=== PATIENT | female | born 1950 | race Caucasian/White ===

== ENCOUNTER 2018-09-06 08:01 | Inpatient (IN) | payer OTHER ==
--- NOTE | 2018-09-06 08:08 | EDPHY ---
H & P Time Seen by Provider: 09/06/18 08:04 HPI/ROS: CHIEF COMPLAINT: Syncope, facial droop HISTORY OF PRESENT ILLNESS: The patient is a 68-year-old female who is a memory care unit. She was witnessed to have syncopal episode at 730am. She fell and struck the posterior aspect of her head. She was reportedly unconscious for 5 min. When EMS arrived the patient was unresponsive. She subsequently became more responsive in the noticed a right-sided facial droop. Patient's mental status has improved in route. Glucose was 152. Met the patient in the hallway. She answer simple questions. She was taken to CT imaging. REVIEW OF SYSTEMS: Unable bowl to obtain a full review of systems due the patient's memory care issues and recent fall. Past Medical/Surgical History: Includes dementia, diabetes Social history: The patient lives in a memory care unit at [facility]. Physical Exam: Vitals noted GENERAL: Alert. Answers simple questions HEENT: Eyes normal to inspection, normal pharynx, no signs of dehydration. Patient has a posterior hematoma. NECK: Normal, supple. No spinal tenderness. C-collar in place RESPIRATORY: Clear to auscultation bilaterally, no rales, rhonchi or wheezing. No chest wall tenderness CVS: Regular rate and rhythm, no rubs, murmurs, or gallops. ABDOMEN: Soft, nontender, nondistended, no organomegaly. BACK: Normal to inspection, no CVA tenderness. SKIN: Normal color, no rash, warm, dry. No pallor. EXTREMITIES: No pedal edema, no calf tenderness, no Homans sign or cords, no joint swelling. NEURO/PSYCH: Alert and answer simple questions. Patient moves all extremities purposefully. No obvious cranial nerve deficit. Constitutional: Initial Vital Signs Temperature (C) 36.8 C 09/06/18 08:30 Heart Rate 81 09/06/18 08:30 Respiratory Rate 18 09/06/18 08:30 Blood Pressure 168/56 H 09/06/18 08:30 O2 Sat (%) 97 09/06/18 08:30 O2 Delivery Mode Nasal Cannula O2 (L/minute) 2 Allergies/Adverse Reactions: No Known Allergies Allergy (Unverified 09/06/18 09:35) Home Medications: Medication Instructions Recorded Metformin HCl 09/06/18 Medical Decision Making - Diagnostics Imaging Results: Imaging Impressions Head CT 09/06/18 08:04 Impression: Negative noncontrast CT of the brain. Results called to Dr. Chelsi Santillan at 8:30 AM at the time of the interpretation. Cervical Spine CT 09/06/18 08:14 Impression: 1. Cervical spine degenerative changes, without acute traumatic injury. Results called to Dr. Chelsi Santillan at 8:30 AM. Head CTA 09/06/18 08:40 Impression: Negative CT angiogram of the [place]. Results called to Dr. Chelsi Santillan at 9:30 AM. Neck CTA 09/06/18 08:40 Impression: 1. Minimal atherosclerosis within the carotid bifurcations bilaterally, without flow-limiting disease. Unusually high left carotid artery bifurcation, with approximately 30% narrowing of the proximal left ICA.. Note: All stenoses are calculated using NASCET Criteria. Results called to Dr. Chelsi Santillan at 9:30 AM. ED Course/Re-evaluation: I met EMS on arrival. Per EMS, the patient was slightly combative EN route. Patient was taken directly to CT imaging after my hallway evaluation. Patient was protecting her airway. She is answering simple questions. When the patient arrived to CT imaging she became combative. She was fighting the attacks. She pulled her IV. I went to CT imaging and placed an external jugular line. Patient was given fentanyl 100 mcg IV, Versed 1 mg IV for sedation. She was given Zofran 4 mg IV for nausea. C-spine precautions were maintained. Patient was secured on the CT imaging table. I stated CT imaging while the scan was performed. I informed Dr. Hector Anderson of CT images pending. 835: I discussed case with Dr. Hector Anderson. No intracranial hemorrhage. Patient does have a noted scalp hematoma. C-spine shows degenerative change with no other abnormality. 836: On recheck the patient is sedated. She is continuing to grab at her IV and nasal cannula. She is not coherently answering questions but does open her eyes to stimulation. She seems have purposeful movement to remove her IV and nasal cannula. She has no obvious facial droop. 840: I discussed the case with [facility], Dr. Mayes. We discussed the patient's presentation, CT imaging and current status. At this time the patient is sedated and video compensating will not help the evaluation. CT angiogram of the head neck were ordered. White count is elevated 14,000. Chemistry panel is unremarkable. Troponin is negative. On recheck the patient is resting comfortably. Awaiting CT results CT angio head neck: Please refer the dictated report by Dr. Anderson. No significant disease noted. I discussed case with the nursing staff. No new complaints Subsequently discussed the case with the hospitalist service. Dr. Granados will admit. Critical Care Time: Patient required 45 min of critical care time. This was exclusive of any unbundled procedure. This was due the patient's presentation, time spent at the bedside, consultation with specialists. - Data Points Laboratory Results: Laboratory Results 09/06/18 08:00 09/06/18 08:00 09/06/18 09/06/18 09/06/18 08:52 08:09 08:00 WBC RBC Hgb POC Hgb 13.9 gm/dL gm/dL (12.6-16.3) Hct POC Hct 41 % % (38-47) MCV MCH MCHC RDW Plt Count MPV Neut % (Auto) Lymph % (Auto) [place] % (Auto) Eos % (Auto) Baso % (Auto) Nucleat RBC Rel Count Absolute Neuts (auto) Absolute Lymphs (auto) Absolute Monos (auto) Absolute Eos (auto) Absolute Basos (auto) Absolute Nucleated RBC Immature Gran % Immature Gran # RBC/WBC/PLT Morphology Platelet Estimate PT INR APTT POC Sodium 143 mEq/L mEq/L (135-145) Sodium 144 mEq/L mEq/L (135-145) POC Potassium 3.9 mEq/L mEq/L (3.3-5.0) Potassium 4.5 mEq/L mEq/L (3.5-5.2) POC Chloride 111 mEq/L H mEq/L (97-110) Chloride 108 mEq/L mEq/L (97-110) Carbon Dioxide 18 mEq/l L mEq/l (22-31) Anion Gap 18 mEq/L H mEq/L (6-14) POC BUN 22 mg/dL mg/dL (7-23) BUN 21 mg/dL mg/dL (7-23) Creatinine 0.9 mg/dL mg/dL (0.6-1.0) POC Creatinine 0.8 mg/dL mg/dL (0.6-1.0) Estimated GFR > 60 Glucose 177 mg/dL H mg/dL (70-100) POC Glucose 182 mg/dL H mg/dL (70-100) Calcium 10.0 mg/dL mg/dL (8.5-10.4) POC Troponin I 0.00 ng/mL ng/mL (0.00-0.08) 09/06/18 09/06/18 08:00 08:00 WBC 14.34 10^3/uL H 10^3/uL (3.80-9.50) RBC 4.75 10^6/uL 10^6/uL (4.18-5.33) Hgb 13.3 g/dL g/dL (12.6-16.3) POC Hgb Hct 42.1 % % (38.0-47.0) POC Hct MCV 88.6 fL fL (81.5-99.8) MCH 28.0 pg pg (27.9-34.1) MCHC 31.6 g/dL L g/dL (32.4-36.7) RDW 13.7 % % (11.5-15.2) Plt Count 305 10^3/uL 10^3/uL (150-400) MPV 11.1 fL fL (8.7-11.7) Neut % (Auto) 50.7 % % (39.3-74.2) Lymph % (Auto) 38.4 % % (15.0-45.0) [place] % (Auto) 6.7 % % (4.5-13.0) Eos % (Auto) 2.8 % % (0.6-7.6) Baso % (Auto) 0.8 % % (0.3-1.7) Nucleat RBC Rel Count 0.0 % % (0.0-0.2) Absolute Neuts (auto) 7.27 10^3/uL H 10^3/uL (1.70-6.50) Absolute Lymphs (auto) 5.51 10^3/uL H 10^3/uL (1.00-3.00) Absolute Monos (auto) 0.96 10^3/uL H 10^3/uL (0.30-0.80) Absolute Eos (auto) 0.40 10^3/uL 10^3/uL (0.03-0.40) Absolute Basos (auto) 0.11 10^3/uL H 10^3/uL (0.02-0.10) Absolute Nucleated RBC 0.00 10^3/uL 10^3/uL (0-0.01) Immature Gran % 0.6 % % (0.0-1.1) Immature Gran # 0.09 10^3/uL 10^3/uL (0.00-0.10) RBC/WBC/PLT Morphology TNP Platelet Estimate TNP PT 13.3 SEC SEC (12.0-15.0) INR 0.99 (0.83-1.16) APTT 22.1 SEC L SEC (23.0-38.0) POC Sodium Sodium POC Potassium Potassium POC Chloride Chloride Carbon Dioxide Anion Gap POC BUN BUN Creatinine POC Creatinine Estimated GFR Glucose POC Glucose Calcium POC Troponin I Medications Given: Discontinued Medications Fentanyl (Sublimaze) 100 mcg IVP EDNOW ONE Stop: 09/06/18 08:46 Last Admin: 09/06/18 08:45 Dose: 100 mcg Fentanyl (Sublimaze) 50 mcg IVP EDNOW ONE Stop: 09/06/18 09:01 Last Admin: 09/06/18 09:00 Dose: 50 mcg Midazolam HCl (Versed) 1 mg IVP EDNOW ONE Stop: 09/06/18 08:46 Last Admin: 09/06/18 08:45 Dose: 1 mg Midazolam HCl (Versed) 1 mg IVP EDNOW ONE Stop: 09/06/18 09:01 Last Admin: 09/06/18 09:00 Dose: 1 mg Ondansetron HCl (Zofran) 4 mg IVP EDNOW ONE Stop: 09/06/18 09:35 Last Admin: 09/06/18 08:45 Dose: 4 mg Point of Care Test Results: Chemistry 09/06/18 09/06/18 08:52 08:09 POC Sodium 143 mEq/L mEq/L (135-145) POC Potassium 3.9 mEq/L mEq/L (3.3-5.0) POC Chloride 111 mEq/L H mEq/L (97-110) POC BUN 22 mg/dL mg/dL (7-23) POC Creatinine 0.8 mg/dL mg/dL (0.6-1.0) POC Glucose 182 mg/dL H mg/dL (70-100) POC Troponin I 0.00 ng/mL ng/mL (0.00-0.08) ISTAT H&H 09/06/18 08:09 POC Hgb 13.9 gm/dL gm/dL (12.6-16.3) POC Hct 41 % % (38-47) Departure - Departure Disposition: [facility] Inpatient Acute Clinical Impression: Syncope Qualifiers: Syncope type: unspecified Qualified Code(s): R55 - Syncope and collapse Head injury Qualifiers: Encounter type: initial encounter Qualified Code(s): S09.90XA - Unspecified injury of head, initial encounter Condition: Good Referrals: Patient,NotPresent [Primary Care Provider] - As per Instructions
[2018-09-06] MEDS ORDERED: fentaNYL 100 MCG/2 ML INJ ONE ×2 (08:10→08:49)
[2018-09-06] MEDS ORDERED: MIDAZOLAM 2 MG/2 ML VIAL ONE (08:11)
[2018-09-06 08:17] LABS: PLATELET COUNT 305 10^3/uL (150-400)
[2018-09-06] MEDS ORDERED: ONDANSETRON 4 MG/2 ML VIAL ONE (08:19)
[2018-09-06 08:24] LABS: INR 0.99 (0.83-1.16); PROTIME(PATIENT) 13.3 SEC (12.0-15.0)
[2018-09-06] MEDS ORDERED: IOPAMIDOL (ISOVUE 370) 100 ML BTL IV ONE (08:41)
[2018-09-06] MEDS ORDERED: MIDAZOLAM 2 MG/2 ML VIAL IVP ONE ×2 (08:45→09:00)
[2018-09-06] MEDS ORDERED: fentaNYL 100 MCG/2 ML INJ IVP ONE ×2 (08:45→09:00)
[2018-09-06] MEDS ORDERED: ONDANSETRON 4 MG/2 ML VIAL IVP ONE (09:34)
[2018-09-06] MEDS ORDERED: ACETAMINOPHEN 325 MG TAB PO PRN (10:20)
[2018-09-06] MEDS ORDERED: ONDANSETRON DISINTEGRATING 4 MG TAB PO PRN (10:20)
[2018-09-06] MEDS ORDERED: ONDANSETRON 4 MG/2 ML VIAL IVP PRN (10:20)
[2018-09-06] MEDS ORDERED: HALOPERIDOL LACT 5 MG/ML INJ ONE (10:27)
[2018-09-06] MEDS ORDERED: HALOPERIDOL LACT 5 MG/ML INJ IVP ONE (10:29)
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
[2018-09-06] MEDS ORDERED: LORazepam 2 MG/ML INJ IVP PRN ×2 (13:31→13:51)
[2018-09-06] MEDS ORDERED: LORazepam 0.5 MG TAB PO PRN (13:37)
--- NOTE | 2018-09-06 13:41 | ASMTCMCOM ---
CM Note CM Note Notes: CM reviewed pt's chart for d/c planning. Pt is a 68 y/o female who resides on the memory care ubit at [facility]. Per [facility], pt is normally very talkative and pleasantly confused. She performs her own ADLs supervised. Today pt was heard yelling out and then with her hands in the air and fell forward. Her eyes were open, but she was not talking. Once she came to, EMS noted a right facial droop. In the ER she was very combative, pulling out her IV. She tried to crawl out of bed during the hospitalist's exam. Her son is her medical proxy. Son and daughter are local.OT/PT have been ordered. CM will follow. It is likely pt will return to [facility]. A referrral was sent to [facility]. D/C Plan: Likely return to [facility]. Date Signed: 09/06/2018 01:41 PM Electronically Signed By:Jovita Whitaker
[2018-09-06] MEDS ORDERED: HALOPERIDOL LACT 5 MG/ML INJ IVP PRN (13:52)
[2018-09-06] MEDS ORDERED: LORazepam 2 MG/ML INJ IVP ONE (13:52)
--- NOTE | 2018-09-06 14:55 | ASMTCMCOM ---
CM Note CM Note Notes: CM informed that pt actually resides at [facility]. Referral has been sent to them. [facility] is aware of this. Date Signed: 09/06/2018 02:54 PM Electronically Signed By:Jovita Whitaker
--- NOTE | 2018-09-06 14:58 | ECHO ---
[email or web address] [address] [address] Main: [phone] Fax: Transthoracic Echocardiogram Name: SHERRY RENDON MR#: [id number] Study Date: 09/06/2018 Study Time: 12:24 PM Date of : 1950 Age: 68 year(s) Height: 165.1 cm (65 in.) Weight: 63.05 kg (139 lb.) BSA: 1.69 m2 Gender: Female Examination: Echo Indication: possible CVA Image Quality: Adequate Contrast: Requested by: Janene Granados BP: 127 mmHg/82 mmHg Heart Rate: Rhythm: Indication: possible CVA Procedure Staff Medicine And Health Service Manager: Melinda Laurent [facility] Reading Physician: Héctor Conklin MD Requesting Provider: Conclusions: Normal size left ventricle. EF is 69 %. No regional wall motion abnormality. There is mild thickening of the mitral valve leaflets. Moderate eccentric, posteriorly directed mitral regurgitation. Trivial tricuspid valve regurgitation. Pulmonary artery pressure is not obtained due to inadequate TR jet. No pericardial effusion. No prior study for comparison. Measurements: Chambers Valvular Assessment AV/MV Valvular Assessment TV/PV Normal Normal Normal Name Value Range Name Value Range Name Value Range Ao Barbara (MM): 2.6 cm (2.2 cm-3.7 AV Vmax: 1.39 m/s (1 m/s-1.7 PV Vmax: 1.00 m/s (0.6 m/s-0.9 cm) m/s) m/s) IVSd (2D): 0.9 cm (0.6 cm-1.1 AV maxP mmHg ( - ) PV PGmax: 4 mmHg ( - ) cm) MV E Vmax: 1.12 m/s ( - ) LVDd (2D): 4.2 cm (3.9 cm-5.3 MV A Vmax: 1.06 m/s ( - ) cm) MV E/A: 1.06 ( - ) LVDs (2D): 2.7 cm (2.1 cm-4 MV meanP mmHg ( - ) cm) MVA (Vmax): 2.6 m/s ( - ) LVPWd (2D): 0.7 cm ( - ) LVOTd 1.8 cm 1.8 cm mm LVEF (BP): 69 % (>=55 %) RVDd(2D): 2.5 cm (1.9 cm-3.8 cmmm) Continued Measurements: Chambers Valvular Assessment AV/MV Patient: SHERRY RENDON Study Date: 09/06/2018 Page 1 of 2 12:24 PM Name Value Name Value LADs: 3.7 cm MV Annulus: 3.3 cm LADs Lon.0 cm MV DecTime: 229 m/s LA Area: 16.7 cm2 MV E' Septal: 0.06 m/s LA Volume: 52 ml MV E/E' Septal: 17.70 LA Volume Index: 30.8 ml/m2 MV E/E' Lateral: 14.00 TAPSE: 2.1 cm MV VTI: 22.20 cm RA Area: 10.8 cm2 MR Vena Contracta: 0.6 cm MR ERO: 0.280 cm2 MR PISA radius: 8 mm MR Reg. Volume: 46 ml MR Reg. Fraction: 24 % Additional Vessels Name Value Ao Ascendin.6 cm Findings: Left Ventricle: Normal size left ventricle. No LV hypertrophy. Normal global systolic LV function. EF is 69 %. No regional wall motion abnormality. Normal diastolic LV function. Right Ventricle: Normal size right ventricle. Normal RV function. Left Atrium: The left atirum is borderline dilated. Right Atrium: The right atrium is normal in size. Mitral Valve: There is mild thickening of the mitral valve leaflets. Moderate eccentric, posteriorly directed mitral regurgitation. No mitral stenosis is present. Aortic Valve: The aortic valve is tri-leaflet and functions normally. There is no aortic valve regurgitation. No aortic valve stenosis is present. Tricuspid Valve: The tricuspid valve is normal in appearance and function. Trivial tricuspid valve regurgitation. Pulmonary artery pressure is not obtained due to inadequate TR jet. Pulmonic Valve: Pulmonary valve not well visualized. Trivial pulmonic valve regurgitation. Aorta: Normal size aortic root measuring 2.6 cm. Normal size ascending aorta measuring 2.6 cm. IVC: The IVC is not well visualized. Pericardium: No pericardial effusion. (No Signature Object) Patient: SHERRY RENDON Study Date: 09/06/2018 Page 2 of 2 12:24 PM [id number]
--- NOTE | 2018-09-06 15:16 | CPEKG ---
Test Reason : OPEN Blood Pressure : / mmHG Vent. Rate : 060 BPM Atrial Rate : 060 BPM P-R Int : 144 ms QRS Dur : 097 ms QT Int : 456 ms P-R-T Axes : 058 005 006 degrees QTc Int : 456 ms Sinus rhythm Posterior infarct, old Confirmed by Chelsi Santillan ([id number]) on 09/06/2018 3:16:09 PM Referred By: Confirmed By:Chelsi Santillan
[2018-09-06] MEDS ORDERED: D50W 25 GM/50 ML SYR IVP PRN (16:23)
[2018-09-06] MEDS: INSULIN LISPRO 100 UNIT/ML SC SCH (16:52)
[2018-09-06] MEDS ORDERED: NS 1,000 ML IV SCH (17:00)
[2018-09-06] MEDS: OLANZapine DISINTEGR 5 MG TAB PO PRN (19:43)
[2018-09-06] MEDS: metFORMIN HCL 500 MG TAB PO SCH (21:10)
[2018-09-07] MEDS: INSULIN LISPRO 100 UNIT/ML SC SCH ×3 (08:16→18:13)
[2018-09-07] MEDS: CHOLECALCIFEROL VIT D3 1,000 UNITS TAB PO SCH (08:21)
[2018-09-07] MEDS: SENNOSIDES 1 TAB PO SCH (08:21)
[2018-09-07] MEDS ORDERED: Herbals/Supplements -Info Only PO SCH (09:00)
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
[2018-09-07] MEDS: levETIRAcetam 500 MG TAB PO SCH ×2 (12:06→20:58)
--- NOTE | 2018-09-07 13:33 | HOSPPROG ---
Hospitalist Progress Note Assessment/Plan: #Questionable syncopal episode vs seizure -unremarkable eval thus far including: CTH, CTA, MRI brain. No infectious signs or symptoms. Afebrile -no atrial fib, no significant VHD -Neuro consulted. Add Keppra BID #Leukocytosis: afebrile. Negative CXR, UA unimpressive, NL resp PCR. No open lesion/sores on feet #Advanced dementia: lives in [facility] #Agitation: resolved. Calm today. May have had paradoxical affect with BZs. -Do not rec BZs in dementia -PRN Zyprexa #DM 2: Metformin #Goals: Edmund, son, is med-proxy. Currently full code #Disp: cont inpatient admission for PT. CM assisting with DC back to [place] Subjective: No dysuria or cough. Objective: Vital Signs Temp Pulse Resp BP Pulse Ox 36.6 C 78 17 125/59 H 96 09/07/18 11:43 09/07/18 11:43 09/07/18 11:43 09/07/18 11:43 09/07/18 11:43 Microbiology 09/06/18 17:20 Respiratory Panel (PCR) - Final Nasal, Sinus - Swab No Organism Detected By Pcr 09/06/18 09/07/18 09/08/18 05:59 05:59 05:59 Intake Total 460 450 Output Total 800 400 Balance -340 50 PT 13.3 SEC (12.0-15.0) 09/06/18 08:00 INR 0.99 (0.83-1.16) 09/06/18 08:00 - Time Spent With Patient Time Spent with Patient: greater than 35 minutes Time Spent with Patient: Greater than 35 minutes spent on this patients care, greater than 50% of time spent counseling, educating, and coordinating care regarding the above mentioned plan. - Physical Exam Constitutional: no apparent distress, other (calm today eating lunch) Ears, Nose, Mouth, Throat: moist mucous membranes Cardiovascular: regular rate and rhythym Respiratory: no respiratory distress Gastrointestinal: normoactive bowel sounds Genitourinary: No evans in urethra Skin: other (no rash, open lesions, specifically on feet) Musculoskeletal: full muscle strength Neurologic: AAOx3, CN II-XII Intact Psychiatric: encephalopathic, poor insight ICD10 Worksheet Patient Problems: Problems Problem Status Onset Head injury Acute Syncope Acute
[2018-09-07] MEDS ORDERED: PNEUMOC 13-VAL CONJ-DIP CRM/PF 0.5 ML SYR (PREVNAR 13) IM ONE (13:45)
--- NOTE | 2018-09-07 14:14 | PDMN ---
Medical Necessity [place] [facility] [place] S[place]: 68 yo w/ syncope w/ increased agitation prior and after episode. Neurology consulted - syncope vs. seizure. Stroke workup neg. Maybe TIA. Pt started on anti-epileptics, infectious process workup started as WBC elevated. PT/OT/speech ordered. Cont TELE monitoring and freq neuro checks. Pt will require >2MN for ongoing dx testing, monitoring and tx of the above. Hx DM, dementia, living at memory care at [facility]
--- NOTE | 2018-09-07 14:45 | PDIAF ---
- Diagnosis Diagnosis: sycope vs seizure Code Status: Full Code - Medication Management Discharge Medications: electronically signed and located in the Home Medication List. - Orders Services needed: Registered Nurse - Follow Up Care Current Providers and Referrals: Patient,NotPresent [Primary Care Provider] - As per Instructions
--- NOTE | 2018-09-07 15:15 | ASMTLACE ---
LACE Length of stay for Answers: 1 day current admission Acuity / Level of Answers: Yes Care: Did the patient have an inpatient admission? Comorbidities - select Answers: Dementia all that apply Diabetes (uncontrolled or controlled) # of Emergency department Answers: 1-2 visits in the last 6 months Score: 9 Date Signed: 09/07/2018 03:15 PM Electronically Signed By:Brisa Parson LCSW
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
--- NOTE | 2018-09-07 15:32 | ASMTDCNOTE ---
Case Management Discharge Discharge Order Complete? Answers: Yes Patient to Obtain Answers: Other Notes: [facility] Medications Transport will Pick (Date 09/07/2018 12:00 AM & Time) Faxed Final Orders Answers: Yes Notes: [facility] Family Notified Answers: Yes Notes: Left message for sonEdmund Discharge Comments Notes: Patient has been discharged. Left message for son to see if he was going to transport patient back to [facility]. If he is unable I will contact [facility] for transport. Date Signed: 09/07/2018 03:31 PM Electronically Signed By:Brisa Parson LCSW
[2018-09-07] MEDS: OLANZapine DISINTEGR 5 MG TAB PO PRN (22:28)
[2018-09-08 08:10] VITALS: BP 114/62
[2018-09-08] MEDS: INSULIN LISPRO 100 UNIT/ML SC SCH ×2 (08:43→11:48)
[2018-09-08] MEDS ORDERED: ATORVASTATIN CALCIUM 20 MG TAB PO SCH (09:00)
[2018-09-08] MEDS: SENNOSIDES 1 TAB PO SCH (09:58)
[2018-09-08] MEDS: metFORMIN HCL 500 MG TAB PO SCH (09:58)
[2018-09-08] MEDS: levETIRAcetam 500 MG TAB PO SCH (09:58)
[2018-09-08] MEDS: CHOLECALCIFEROL VIT D3 1,000 UNITS TAB PO SCH (09:58)
--- NOTE | 2018-09-08 16:31 | PDIAF ---
- Diagnosis Diagnosis: sycope vs seizure Code Status: Full Code - Medication Management Discharge Medications: electronically signed and located in the Home Medication List. - Orders Services needed: Home Care, Registered Nurse, Physical Therapy, Occupational Therapy Home Care Face to Face: I certify that this patient was under my care and that I had the required [id number] encounter meeting the encounter requirements on the discharge day. My findings support the fact that the patient is homebound as defined in Home Care Face to Face Continued: CMS Chapter 7 Medicare Benefits Manual 30.1.1 , The condition of the patient is such that there exists a normal inability to leave home and consequently, leaving home would require a considerable and taxing effort. Isolation Type: None Diet Recommendation: no restrictions on diet Diet Texture: Regular Texture Diet, None - Follow Up Care Current Providers and Referrals: Eliazar Marie DO [Medical Doctor] - (FU 2-4 weeks for EEG, FU on Keppra tolerance) Patient,NotPresent [Primary Care Provider] - As per Instructions
--- NOTE | 2018-09-08 17:14 | PDIAF ---
- Diagnosis Diagnosis: sycope vs seizure Code Status: Full Code - Medication Management Discharge Medications: electronically signed and located in the Home Medication List. - Orders Services needed: Home Care, Registered Nurse, Physical Therapy, Occupational Therapy Home Care Face to Face: I certify that this patient was under my care and that I had the required [id number] encounter meeting the encounter requirements on the discharge day. My findings support the fact that the patient is homebound as defined in Home Care Face to Face Continued: CMS Chapter 7 Medicare Benefits Manual 30.1.1 , The condition of the patient is such that there exists a normal inability to leave home and consequently, leaving home would require a considerable and taxing effort. Isolation Type: None Diet Recommendation: no restrictions on diet Diet Texture: Regular Texture Diet, None - Follow Up Care Current Providers and Referrals: Eliazar Marie DO [Medical Doctor] - (FU 2-4 weeks for EEG, FU on Keppra tolerance) Patient,NotPresent [Primary Care Provider] - As per Instructions
--- NOTE | 2018-09-08 17:20 | PDIAF ---
- Diagnosis Diagnosis: sycope vs seizure Code Status: Full Code - Medication Management Discharge Medications: electronically signed and located in the Home Medication List. - Orders Services needed: Registered Nurse, Physical Therapy, Occupational Therapy Isolation Type: None Diet Recommendation: no restrictions on diet Diet Texture: Regular Texture Diet, None - Follow Up Care Current Providers and Referrals: Eliazar Marie DO [Medical Doctor] - (FU 2-4 weeks for EEG, FU on Keppra tolerance) Patient,NotPresent [Primary Care Provider] - As per Instructions
--- NOTE | 2018-09-08 17:28 | ASMTLACE ---
LACE Length of stay for Answers: 3 days current admission Acuity / Level of Answers: Yes Care: Did the patient have an inpatient admission? Comorbidities - select Answers: Dementia all that apply Diabetes (uncontrolled or controlled) # of Emergency department Answers: 1-2 visits in the last 6 months Score: 11 Date Signed: 09/08/2018 05:28 PM Electronically Signed By:SORAIDA Montoya
--- NOTE | 2018-09-08 17:38 | ASMTCMCOM ---
CM Note CM Note Notes: Pt medically stable for d/c back to [facility] to schedule wc transport and call unit. MELCHOR Zayas to call report. Orders sent in [employer]. Attempted to update pt son at number on board in room and number in [employer], one number is invalid and voicemail left on other number. Date Signed: 09/08/2018 05:38 PM Electronically Signed By:SORAIDA Montoya
--- NOTE | 2018-09-09 08:51 | ASDISCHSUM ---
Discharge Information Plan Status:SNF Medically Cleared to Leave:09/06/2018 Discharge Date:09/08/2018 06:33 PM D/C Disposition:[facility] ADT D/C Disposition:[facility] Facility Projected Discharge Date:09/07/2018 04:00 PM Transportation at D/C: Discharge Delay Reason: Follow-Up Date:09/07/2018 04:00 PM Discharge Slot:2 - 12:01 pm - 18:00 pm Final Diagnosis:Near syncope Placement Information Referral Type:*[facility]cf/SNF Referral ID:[id number] Provider Name:Victor Hugo Watkins/Yeelink Address 1:[address] [facility] Address 2: Fax Number: [facility]:[place] Selection Factors: State:[place] Referral Type:*Chcf/SNF Referral ID:[id number] Provider Name: Address 1: Phone Number: Address 2: Fax Number: City: Selection Factors: State: Patient Contact Information Contact Name:MILADY Relationship:Son Address: Work Phone: [place] [facility] Alternate Phone: State/Zip Code:[place] [address] Email: Financial Information Financial Class:Medicare Primary Plan Desc:MEDICARE INPATIENT Primary Plan Number:[id number] Secondary Plan Desc: Secondary Plan Number: Assessment Information LACE LACE Length of stay for Answers: 1 day current admission Acuity / Level of Answers: Yes Care: Did the patient have an inpatient admission? Comorbidities - select Answers: Dementia all that apply Diabetes (uncontrolled or controlled) # of Emergency department Answers: 1-2 visits in the last 6 months Score: 9 Date Signed: 09/07/2018 03:15 PM Electronically Signed By:Brisa Parson LCSW [facility] CM Progress Note CM Note CM Note Notes: CM reviewed pt's chart for d/c planning. Pt is a 68 y/o female who resides on the memory care ubit at [facility]. Per [facility], pt is normally very talkative and pleasantly confused. She performs her own ADLs supervised. Today pt was heard yelling out and then with her hands in the air and fell forward. Her eyes were open, but she was not talking. Once she came to, EMS noted a right facial droop. In the ER she was very combative, pulling out her IV. She tried to crawl out of bed during the hospitalist's exam. Her son is her medical proxy. Son and daughter are local.OT/PT have been ordered. CM will follow. It is likely pt will return to [facility]. A referrral was sent to [facility]. D/C Plan: Likely return to [facility]. Date Signed: 09/06/2018 01:41 PM Electronically Signed By:Jovita Whitaker [facility] Progress Note CM Note MARY Note Notes: MARY informed that pt actually resides at [facility]. Referral has been sent to them. [facility] is aware of this. Date Signed: 09/06/2018 02:54 PM Electronically Signed By:Jovita Whitaker Case Management Discharge Plan Note Case Management Discharge Discharge Order Complete? Answers: Yes Patient to Obtain Answers: Other Notes: [facility] Medications Transport will Pick (Date 09/07/2018 12:00 AM & Time) Faxed Final Orders Answers: Yes Notes: [facility] Family Notified Answers: Yes Notes: Left message for sonEdmund Discharge Comments Notes: Patient has been discharged. Left message for son to see if he was going to transport patient back to [facility]. If he is unable I will contact [facility] for transport. Date Signed: 09/07/2018 03:31 PM Electronically Signed By:Brisa Parson LCSW [facility] Length of stay for Answers: 3 days current admission Acuity / Level of Answers: Yes Care: Did the patient have an inpatient admission? Comorbidities - select Answers: Dementia all that apply Diabetes (uncontrolled or controlled) # of Emergency department Answers: 1-2 visits in the last 6 months Score: 11 Date Signed: 09/08/2018 05:28 PM Electronically Signed By:SORAIDA Montoya [facility] MARY Progress Note CM Note CM Note Notes: [facility] MELCHOR Zayas to call report. Orders sent in [employer]. Attempted to update pt son at number on board in room and number in [employer], one number is invalid and voicemail left on other number. Date Signed: 09/08/2018 05:38 PM Electronically Signed By:SORAIDA Montoya Intervention Information
--- NOTE | 2018-09-10 11:15 | CPEKG ---
Test Reason : OPEN Blood Pressure : / mmHG Vent. Rate : 114 BPM Atrial Rate : 114 BPM P-R Int : 181 ms QRS Dur : 082 ms QT Int : 328 ms P-R-T Axes : 042 038 023 degrees QTc Int : 452 ms Sinus tachycardia Confirmed by Bobby Stanley ([id number]) on 09/10/2018 11:14:33 AM Referred By: Confirmed By:Bobby Stanley
== END 2018-09-08 18:33 | DRG 312 ==
LOC: EDUNIT# → F3N 11:16 → OBSVTOIN 17:08
PROVIDERS: ADMIT Internal Medicine; ATTEND Internal Medicine
DX: R55 Syncope and collapse (principal); G93.41 Metabolic encephalopathy; R56.9 Unspecified convulsions; S09.90XA Unspecified injury of head, initial encounter; F03.91 Unspecified dementia, unspecified severity, with behavioral disturbance; R29.810 Facial weakness; E11.9 Type 2 diabetes mellitus without complications; G89.29 Other chronic pain; M25.512 Pain in left shoulder; W19.XXXA Unspecified fall, initial encounter; Z23 Encounter for immunization; Z79.84 Long term (current) use of oral hypoglycemic drugs
CPT/HCPCS: 82435-PO; 82565-PO; 82607-90; 82947-PO; 84132-PO; 84295-PO; 84484-PO; 84520-PO; 85014-PO; 96374; 97161-GP; 97166-GO; G0009; G8978-GP-CI; G8979-GP-CI; G8980-GP-CI; G8987-GO-CK; G8988-GO-CK; J1630; J1815; J2060; J2250; J2405; J3010; Q9967